=== PATIENT | male | born 1945 | race Caucasian/White ===

== ENCOUNTER 2017-11-29 11:19 | Emergency (ER) | payer MEDICARE ==
[2017-11-29] MEDS: LIDOCAINE 2% MDV 20 ML VIAL SC (13:06)
== END 2017-11-29 14:53 | disposition home or self-care (01) ==
LOC: M ED 11:19
DX: L02.511 Cutaneous abscess of right hand (principal); L03.113 Cellulitis of right upper limb; I10 Essential (primary) hypertension; Z72.0 Tobacco use
CPT/HCPCS: 73130